=== PATIENT | male | born 1970 | race African-American/Black ===

== ENCOUNTER 2016-04-29 07:26 | Emergency (ER) | payer OTHER, MEDICAID ==
[~2016-04-29] VITALS: Ht 188 cm; Wt 106.1 kg
[2016-04-29 08:13] VITALS: BP 159/112
[2016-04-29] MEDS ORDERED: KETOROLAC TROMETH 60MG/2ML VIAL IM ONE (11:00)
== END 2016-04-29 11:27 | disposition home or self-care (01) ==
LOC: ER 07:40
DX: S39.011A Strain of muscle, fascia and tendon of abdomen, initial encounter (principal); K80.20 Calculus of gallbladder without cholecystitis without obstruction; I10 Essential (primary) hypertension; I50.9 Heart failure, unspecified; X50.1XXA Overexertion from prolonged static or awkward postures, initial encounter; Y93.89 Activity, other specified; Y99.8 Other external cause status; Y92.89 Other specified places as the place of occurrence of the external cause
CPT/HCPCS: 74176; 96372; 99284; J1885

== ENCOUNTER 2017-04-08 02:27 | Emergency (ER) | payer MEDICAID, OTHER ==
[~2017-04-08] VITALS: Ht 188 cm; Wt 102.1 kg
[~2017-04-08 02:27] MED LIST: ASPI325T25 PO; CARV6.25 PO; CLON0.1T PO; FURO40TA PO; LISI40TA PO; OMEP20CA74 PO; SPIR25TA89 PO
[2017-04-08 02:30] VITALS: BP 164/93
[2017-04-08 03:07] LABS: Basophils # (auto) 0 uL; Basophils % (auto) 0.6 % (0.0-2.0); Eosinophils # (auto) 0 uL; Eosinophils % (auto) 0.6 % (0.0-7.0); Hematocrit 36.6 % (41.0-53.0); Hemoglobin 12.1 g/dL (13.5-17.5); Lymphocytes # (auto) 1.3 uL; Lymphocytes % (auto) 23.5 % (10.0-50.0); Mean Corpuscular Hemoglobin 31.5 pg (28.0-32.0); Mean Corpuscular Volume 95.7 fL (80.0-100.0); Mean Platelet Volume 8.6 fL (6.9-10.8); Monocytes # (auto) 0.6 uL; Monocytes % (auto) 10.3 % (0.0-12.0); Neutrophils # (auto) 3.7 uL; Nucleated Red Blood Cells % 0.2 %; Platelet Count (auto) 240 10^3/uL (140-450); White Blood Cell 5.7 10^3/uL (4.4-10.8)
[2017-04-08 03:27] LABS: Anion Gap 8 (5-15); BUN/Creatinine Ratio 9.6; Blood Urea Nitrogen 9 mg/dL (7-18); Calcium 8.6 mg/dL (8.5-10.1); Carbon Dioxide 27 mmol/L (21-32); Chloride 106 mmol/L (98-107); GFR African American 112 mL/min; GFR Non-African American 93 mL/min; Glucose 96 mg/dL (74-106); Magnesium 1.8 mg/dL (1.6-2.6); Sodium 141 mmol/L (136-145)
[2017-04-08 03:32] LABS: Alkaline Phosphatase 84 U/L (45-117); Aspartate Aminotransferase 62 U/L (15-37); Bilirubin, Total 0.6 mg/dL (0.2-1.0); Total Protein 7.6 g/dL (6.4-8.2)
[2017-04-08 03:43] LABS: B-Type Natriuretic Peptide < 5.0 pg/mL (0-100); Temperature: 21.9 C (20.0-25.0)
== END 2017-04-08 07:09 | disposition left against medical advice (07) ==
LOC: ER 02:27
DX: R42 Dizziness and giddiness (principal); Z53.21 Procedure and treatment not carried out due to patient leaving prior to being seen by health care provider
CPT/HCPCS: 36415; 80053; 83735; 83880; 84484; 85025; 93005